=== PATIENT | male | born 1980 | race Caucasian/White ===

== ENCOUNTER 2017-07-09 09:40 | Emergency (ER) | payer SELFPAY ==
[~2017-07-09 09:40] MED LIST: CLIN1CAP5 PO
[2017-07-09 09:42] VITALS: BP 174/100; PULSE 82; RESP 15; TEMP 98.1; O2SAT 98
[2017-07-09] MEDS ORDERED: SODIUM CHLORIDE 0.9% FLUSH 10 ML FLUSH IVF PRN (11:15)
[2017-07-09] MEDS ORDERED: SODIUM CHLOR 0.9% 1000 ML INJ 1,000 ML IV ONE (11:15)
[2017-07-09] MEDS ORDERED: TETANUS/DIPHTHERIA TOXOID ADULT 0.5 ML VIAL IM ONE (11:15)
[2017-07-09 11:48] LABS: BASOPHIL % 0.5 % (0.0-2.0); EOSINOPHIL # 0.2 TH/MM3 (0-0.4); EOSINOPHIL % 2.6 % (0.0-4.0); HEMATOCRIT 41.7 % (39.0-51.0); HEMO FLAGS DIFF FINAL; LYMPH % 24.2 % (9.0-44.0); LYMPHOCYTE # 2.2 TH/MM3 (1.0-4.8); MEAN CELL VOLUME 85.5 FL (80.0-100.0); MEAN CORPUSCULAR HEMOGLOBIN 29.8 PG (27.0-34.0); MEAN CORPUSCULAR HGB CONC 34.9 % (32.0-36.0); MONO % 6.2 % (0.0-8.0); NEUT % 66.5 % (16.0-70.0); PLATELET COUNT 183 TH/MM3 (150-450); RED BLOOD COUNT 4.88 MIL/MM3 (4.50-5.90); RED CELL DISTRIBUTION WIDTH 13.7 % (11.6-17.2); WHITE BLOOD COUNT 9.1 TH/MM3 (4.0-11.0)
[2017-07-09 11:59] LABS: BICARBONATE 27.6 MEQ/L (21.0-32.0); POTASSIUM 3.8 MEQ/L (3.5-5.1)
[2017-07-09 12:19] LABS: CKMB 5.3 NG/ML (0.5-3.6)
--- NOTE | 2017-07-09 12:28 | PD ---
HPI Chief Complaint: Skin Problem Time Seen by Provider: 10:59 Travel History International Travel<30 days: No Contact w/Intl Traveler<30days: No Traveled to known affect area: No History of Present Illness HPI Patient is a 36-year-old male who presents to emergency room with multiple complaints. 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 Reports that the rash is not pruritic in nature, reports that he has not been scratching, reports that he wasn't sure when the rash came from. Patient denies any fevers or chills, denies any calf pain, no recent travels, no shortness of breath. No history of PE or DVT. Patient also complains of bug bite to his left hand digit #1 - reports that he noticed a bite 3 days ago and he did excise some pus from it. Reports that he has some localized swelling around his left hand, no drainage or redness up his arm. No other c/o. PFSH Past Medical History Medical History: Denies Significant Hx Cerebrovascular Accident: No Diabetes: No Diminished Hearing: No Myocardial Infarction: No Social History Alcohol Use: No Tobacco Use: No Substance Use: No Allergies-Medications (Allergen,Severity, Reaction): Coded Allergies: Penicillin (Verified Allergy, Severe, Respiratory Failure, 07/09/17) Reported Meds & Prescriptions Reported Meds & Active Scripts Active No Active Prescriptions or Reported Medications Review of Systems General / Constitutional: No: Fever, Chills Eyes: No: Visual changes HENT: No: Headaches Cardiovascular: No: Chest Pain or Discomfort Respiratory: No: Shortness of Breath Gastrointestinal: No: Abdominal Pain Genitourinary: No: Dysuria Musculoskeletal: No: Pain Skin: Positive Rash Neurologic: No: Weakness Psychiatric: No: Depression Endocrine: No: Polydipsia Hematologic/Lymphatic: No: Easy Bruising Physical Exam Narrative GENERAL: NAD SKIN: Focused skin assessment warm/dry. heat rash to b/l lower extremities, rashes not circumferential, there is no petechia or purpura, there is no redness or cellulitis, rash is not raised or excoriated HEAD: Atraumatic. Normocephalic. EYES: Pupils equal and round. No scleral icterus. No injection or drainage. ENT: No nasal bleeding or discharge. Mucous membranes pink and moist. NECK: Trachea midline. No JVD. CARDIOVASCULAR: Regular rate and rhythm. No murmur appreciated. RESPIRATORY: No accessory muscle use. Clear to auscultation. Breath sounds equal bilaterally. GASTROINTESTINAL: Abdomen soft, non-tender, nondistended. Hepatic and splenic margins not palpable. MUSCULOSKELETAL: No obvious deformities. No clubbing. No cyanosis. No edema. Left hand: patient with healing bug bite to left hand digit #3 - no drainage, no erythema, mild redness to thenar eminence, normal rom to all digits, pulses intact, neurovascularly intact NEUROLOGICAL: Awake and alert. No obvious cranial nerve deficits. Motor grossly within normal limits. Normal speech. PSYCHIATRIC: Appropriate mood and affect; insight and judgment normal. Data Data Last Documented VS Vital Signs Date Time Temp Pulse Resp B/P Pulse Ox O2 Delivery O2 Flow Rate FiO2 07/09/17 09:42 98.1 82 15 174/100 98 Orders Basic Metabolic Panel (Bmp) (07/09/17 11:07) Complete Blood Count With Diff (07/09/17 11:07) Iv Access Insert/Monitor (07/09/17 11:07) Sodium Chloride 0.9% Flush (Ns Flush) (07/09/17 11:15) Creatine Kinase (Cpk) (07/09/17 11:07) Sodium Chlor 0.9% 1000 Ml Inj (Ns 1000 M (07/09/17 11:15) Tetanus/Diphtheria Tox Adult (Tetanus/Di (07/09/17 11:15) CKMB (07/09/17 11:15) CKMB% (07/09/17 11:15) Labs Laboratory Tests Test 07/09/17 11:15 White Blood Count 9.1 TH/MM3 Red Blood Count 4.88 MIL/MM3 Hemoglobin 14.6 GM/DL Hematocrit 41.7 % Mean Corpuscular Volume 85.5 FL Mean Corpuscular Hemoglobin 29.8 PG Mean Corpuscular Hemoglobin 34.9 % Concent Red Cell Distribution Width 13.7 % Platelet Count 183 TH/MM3 Mean Platelet Volume 8.8 FL Neutrophils (%) (Auto) 66.5 % Lymphocytes (%) (Auto) 24.2 % Monocytes (%) (Auto) 6.2 % Eosinophils (%) (Auto) 2.6 % Basophils (%) (Auto) 0.5 % Neutrophils # (Auto) 6.0 TH/MM3 Lymphocytes # (Auto) 2.2 TH/MM3 Monocytes # (Auto) 0.6 TH/MM3 Eosinophils # (Auto) 0.2 TH/MM3 Basophils # (Auto) 0.0 TH/MM3 CBC Comment DIFF FINAL Differential Comment Sodium Level 141 MEQ/L Potassium Level 3.8 MEQ/L Chloride Level 106 MEQ/L Carbon Dioxide Level 27.6 MEQ/L Anion Gap 7 MEQ/L Blood Urea Nitrogen 13 MG/DL Creatinine 1.03 MG/DL Estimat Glomerular Filtration 81 ML/MIN Rate Random Glucose 91 MG/DL Calcium Level 8.7 MG/DL Total Creatine Kinase 796 U/L Creatine Kinase MB 5.3 NG/ML Creatine Kinase MB % 0.7 % MDM Medical Decision Making Medical Screen Exam Complete: Yes Emergency Medical Condition: Yes Interpretation(s) Vital Signs Date Time Temp Pulse Resp B/P Pulse Ox O2 Delivery O2 Flow Rate FiO2 07/09/17 09:42 98.1 82 15 174/100 98 Laboratory Tests Test 07/09/17 11:15 White Blood Count 9.1 TH/MM3 (4.0-11.0) Red Blood Count 4.88 MIL/MM3 (4.50-5.90) Hemoglobin 14.6 GM/DL (13.0-17.0) Hematocrit 41.7 % (39.0-51.0) Mean Corpuscular Volume 85.5 FL (80.0-100.0) Mean Corpuscular Hemoglobin 29.8 PG (27.0-34.0) Mean Corpuscular Hemoglobin 34.9 % Concent (32.0-36.0) Red Cell Distribution Width 13.7 % (11.6-17.2) Platelet Count 183 TH/MM3 (150-450) Mean Platelet Volume 8.8 FL (7.0-11.0) Neutrophils (%) (Auto) 66.5 % (16.0-70.0) Lymphocytes (%) (Auto) 24.2 % (9.0-44.0) Monocytes (%) (Auto) 6.2 % (0.0-8.0) Eosinophils (%) (Auto) 2.6 % (0.0-4.0) Basophils (%) (Auto) 0.5 % (0.0-2.0) Neutrophils # (Auto) 6.0 TH/MM3 (1.8-7.7) Lymphocytes # (Auto) 2.2 TH/MM3 (1.0-4.8) Monocytes # (Auto) 0.6 TH/MM3 (0-0.9) Eosinophils # (Auto) 0.2 TH/MM3 (0-0.4) Basophils # (Auto) 0.0 TH/MM3 (0-0.2) CBC Comment DIFF FINAL Differential Comment Sodium Level 141 MEQ/L (136-145) Potassium Level 3.8 MEQ/L (3.5-5.1) Chloride Level 106 MEQ/L (98-107) Carbon Dioxide Level 27.6 MEQ/L (21.0-32.0) Anion Gap 7 MEQ/L (5-15) Blood Urea Nitrogen 13 MG/DL (7-18) Creatinine 1.03 MG/DL (0.60-1.30) Estimat Glomerular Filtration 81 ML/MIN (>89) Rate Random Glucose 91 MG/DL (74-106) Calcium Level 8.7 MG/DL (8.5-10.1) Total Creatine Kinase 796 U/L (39-308) Creatine Kinase MB 5.3 NG/ML (0.5-3.6) Creatine Kinase MB % 0.7 % (0.0-4.0) Differential Diagnosis Differential includes heat rash, dehydration, rhabdomyolysis, bug bite with no signs of infection Narrative Course 36-year-old male who presents to emergency room with multiple complaints. Patient appears to have a heat rash to his bilateral lower extremities, he rash is right above his boots where the top of his boots meet his skin. Reports that it has been very hot outside and just wanted his rash evaluated. Rash does appear to be heat rash related, there appears to be no signs of infection. Patient also complaining of a bug bite to his right hand. I reviewed with patient signs of progessing infection and when to return to ER - tetanus was updated today. will start patient on clinda for hand infection - signs and symptoms of when to return to ER was reviewed with patient in detail Patient also reports feeling lightheaded and dizzy today, patient was given IV fluid and feels better at this time. CBC: WNL BMP: total ck 796 patient with mild rhabdo, discussed need to increase his fluid intake. Patient will follow up with a primary care doctor and will return to emergency room as needed. Diagnosis Primary Impression: Dehydration Additional Impressions: Bug bite Qualified Code: W57.XXXA - Bug bite, initial encounter Rhabdomyolysis Qualified Code: M62.82 - Non-traumatic rhabdomyolysis Cellulitis of hand, left Patient Instructions: General Instructions Additional Instructions: Please return to the emergency room as needed Please drink plenty of fluids Please follow up with your primary care doctor Return to ER if symptoms worsen or persist Scripts Clindamycin 300 Mg [id number] Mg PO Q6H 7 Days Ref 0 Prov:Nancy Levine DO 07/09/17 Disposition: 01 DISCHARGE HOME Condition: Stable Nancy Levine DO Jul 09, 2017 12:28
[2017-07-09] MEDS ORDERED: CLIN1CAP6 PO (12:41)
[2017-07-09 12:55] VITALS: BP 158/78
== END 2017-07-09 13:15 | disposition home or self-care (01) ==
LOC: NEPD 09:40
DX: E86.0 Dehydration (principal); M62.82 Rhabdomyolysis; L03.114 Cellulitis of left upper limb; S60.561A Insect bite (nonvenomous) of right hand, initial encounter; R42 Dizziness and giddiness; W57.XXXA Bitten or stung by nonvenomous insect and other nonvenomous arthropods, initial encounter; Z88.0 Allergy status to penicillin; Z23 Encounter for immunization
CPT/HCPCS: 80048; 82550; 82552; 85025; 90471; 90714; 96360; 99284; J7030

== ENCOUNTER 2018-02-24 08:21 | Emergency (ER) | payer MEDICAID ==
[~2018-02-24] VITALS: Ht 182.9 cm; Wt 142.0 kg
[~2018-02-24 08:21] MED LIST changes: -CLIN1CAP5 PO; +CLIN300C5 PO
[2018-02-24 08:32] VITALS: BP 176/106; PULSE 108; RESP 20; TEMP 99.1; O2SAT 94
--- NOTE | 2018-02-24 09:31 | RADRPT ---
EXAM DATE/TIME: 02/24/2018 09:23 [facility] COMPARISON: No previous studies available for comparison. INDICATIONS : Patient states cough. MEDICAL HISTORY : None. SURGICAL HISTORY : None. ENCOUNTER: Initial ACUITY: 3 days PAIN SCORE: 0/10 LOCATION: Bilateral chest FINDINGS: PA and lateral views of the chest were obtained and demonstrate mild patchy infiltrate in the left lo wer lobe. The right lung is clear. There is no effusion. The heart and mediastinal structures are wit hin normal limits. The soft tissues and bony thorax are unremarkable in appearance. CONCLUSION: Patchy infiltrate in the left lower lobe most characteristic of pneumonia. Jim Hamilton MD on February 24, 2018 at 9:27 Board Certified Radiologist. This report was verified electronically.
[2018-02-24 10:05] VITALS: O2SAT 98
--- NOTE | 2018-02-24 10:11 | PD ---
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 Patient states pain became severe made him sweat and feel very run down for a few moments. He also states he has been having a dry cough and some intermittent shortness of breath recently as well. No fevers no abdominal pain no nausea no vomiting no diarrhea. He states his symptoms were fairly severe lasted only for a few seconds now nearly resolved associated signs and symptoms and contacts as above per [facility] Past Medical History Cerebrovascular Accident: No Diabetes: No Diminished Hearing: No Myocardial Infarction: No Social History Alcohol Use: Yes ([facility]) Tobacco Use: No Substance Use: No Allergies-Medications (Allergen,Severity, Reaction): Coded Allergies: penicillin G (Unverified Allergy, Severe, Respiratory Failure, 07/16/17) Reported Meds & Prescriptions Reported Meds & Active Scripts Active Mucinex DM (Dextromethorphan-Guaifenesin) 30-600 Mg Tab 1 Tab PO BID PRN Tessalon Perles (Benzonatate) 100 Mg Cap 100 Mg PO TID PRN Azithromycin 250 Mg Tab 250 Mg PO DIRECTED Take 2 tabs (500 mg) on day 1 then 1 tab daily x 4 days. Proair Hfa 8.5 GM Inh (Albuterol Sulfate) 90 Mcg/Act Aer 2 Puff INH Q6H PRN 108 mcg/actuation Clindamycin (Clindamycin HCl) 300 Mg Cap 300 Mg PO Q6H 7 Days Review of Systems Except as stated in HPI: all other systems reviewed are Neg Physical Exam Narrative GENERAL: Well-developed, overweight but in no obvious distress SKIN: Focused skin assessment warm/dry. HEAD: Atraumatic. Normocephalic. EYES: Pupils equal and round. No scleral icterus. No injection or drainage. ENT: No nasal bleeding or discharge. Mucous membranes pink and moist. TMs clear bilaterally, oropharynx clear moist, exhibiting a dry cough peer NECK: Trachea midline. No JVD. CARDIOVASCULAR: Regular rate and rhythm. No murmur appreciated. 2+ bilateral equal pulses in all 4 extremity's, no murmurs gallops or rubs RESPIRATORY: No accessory muscle use. Clear to auscultation. Breath sounds equal bilaterally. GASTROINTESTINAL: Abdomen soft, non-tender, nondistended. Hepatic and splenic margins not palpable. MUSCULOSKELETAL: No obvious deformities. No clubbing. No cyanosis. No edema. NEUROLOGICAL: Awake and alert. No obvious cranial nerve deficits. Motor grossly within normal limits. Normal speech. PSYCHIATRIC: Appropriate mood and affect; insight and judgment normal. Data Data Last Documented VS Vital Signs Date Time Temp Pulse Resp B/P (MAP) Pulse Ox O2 Delivery O2 Flow Rate FiO2 02/24/18 13:08 86 18 145/72 (96) 98 02/24/18 10:05 Room Air 02/24/18 08:32 99.1 Orders Orders Electrocardiogram (02/24/18 08:36) Complete Blood Count With Diff (02/24/18 08:36) Basic Metabolic Panel (Bmp) (02/24/18 08:36) Ckmb (Isoenzyme) Profile (02/24/18 08:36) Troponin I (02/24/18 08:36) Iv Access Insert/Monitor (02/24/18 08:36) Ecg Monitoring (02/24/18 08:36) Oxygen Administration (02/24/18 08:36) Oximetry (02/24/18 08:36) Chest, Pa & Lat (02/24/18 08:36) Act Partial Throm Time (Ptt) (02/24/18 10:11) Prothrombin Time / Inr (Pt) (02/24/18 10:11) D-Dimer (02/24/18 10:11) CKMB (02/24/18 08:56) CKMB% (02/24/18 08:56) Ed Discharge Order (02/24/18 12:52) Labs Laboratory Tests Test 02/24/18 08:56 02/24/18 08:59 White Blood Count 6.4 TH/MM3 Red Blood Count 5.05 MIL/MM3 Hemoglobin 14.9 GM/DL Hematocrit 42.8 % Mean Corpuscular Volume 84.7 FL Mean Corpuscular Hemoglobin 29.5 PG Mean Corpuscular Hemoglobin Concent 34.8 % Red Cell Distribution Width 13.4 % Platelet Count 168 TH/MM3 Mean Platelet Volume 9.5 FL Neutrophils (%) (Auto) 71.4 % Lymphocytes (%) (Auto) 15.5 % Monocytes (%) (Auto) 9.6 % Eosinophils (%) (Auto) 3.0 % Basophils (%) (Auto) 0.5 % Neutrophils # (Auto) 4.5 TH/MM3 Lymphocytes # (Auto) 1.0 TH/MM3 Monocytes # (Auto) 0.6 TH/MM3 Eosinophils # (Auto) 0.2 TH/MM3 Basophils # (Auto) 0.0 TH/MM3 CBC Comment AUTO DIFF Differential Total Cells Counted 100 Neutrophils % (Manual) 65 % Band Neutrophils % 6 % Lymphocytes % 14 % Monocytes % 13 % Eosinophils % 1 % Neutrophils # (Manual) 4.6 TH/MM3 Myelocytes 1 % Differential Comment FINAL DIFF MANUAL Platelet Estimate NORMAL Platelet Morphology Comment NORMAL Blood Urea Nitrogen 10 MG/DL Creatinine 1.15 MG/DL Random Glucose 117 MG/DL Calcium Level 8.8 MG/DL Sodium Level 140 MEQ/L Potassium Level 3.8 MEQ/L Chloride Level 106 MEQ/L Carbon Dioxide Level 26.0 MEQ/L Anion Gap 8 MEQ/L Estimat Glomerular Filtration Rate 71 ML/MIN Total Creatine Kinase 208 U/L Creatine Kinase MB 1.5 NG/ML Troponin I LESS THAN 0.02 NG/ML Prothrombin Time 10.2 SEC Prothromb Time International Ratio 1.0 RATIO Activated Partial Thromboplast Time 27.1 SEC D-Dimer Quantitative (PE/DVT) 0.43 MG/L FEU [facility] Medical Decision Making Medical Screen Exam Complete: Yes Emergency Medical Condition: Yes Differential Diagnosis Pneumonia, ACS unlikely, palpitations, PE. Narrative Course Patient room to the emergency department, overall appears fairly well, chest x- ray does show some evidence of pneumonia which would be in line with his symptoms. D-dimer is negative the patient is low risk for PE. EKG normal. Patient otherwise appears well. Discussed empiric therapy and follow-up with a primary care physician or the [facility]. At this time there is no indication further workup. He is stable for discharge. Diagnosis Primary Impression: Pneumonia Departure Forms: Tests/Procedures, Work Release Enter return to work date: Feb 27, 2018 Med/Other Pt SpecificInfo: Prescription(s) given Scripts Dextromethorphan-Guaifenesin (Mucinex DM) 30-600 Mg Tab 1 TAB PO BID Y for CHEST CONGESTION AND/OR COUGH, #21 TAB 0 Refills Prov: Abel Ma MD 02/24/18 Benzonatate (Tessalon Perles) 100 Mg Cap 100 MG PO TID Y for COUGH, #21 CAP 0 Refills Prov: Abel Ma MD 02/24/18 Azithromycin (Azithromycin) 250 Mg Tab 250 MG PO DIRECTED for Infection, #6 TAB 0 Refills Take 2 tabs (500 mg) on day 1 then 1 tab daily x 4 days. Prov: Abel Ma MD 02/24/18 Albuterol 8.5 GM Inh (Proair Hfa 8.5 GM Inh) 90 Mcg/Act Aer 2 PUFF INH Q6H Y for SHORTNESS OF BREATH, #1 INHALER 1 Refill 108 mcg/actuation Prov: Abel Ma MD 02/24/18 Disposition: 01 DISCHARGE HOME Condition: Stable Abel Ma MD Feb 24, 2018 10:11
[2018-02-24 10:16] LABS: AUTOMATED NEUTROPHIL # 4.5 TH/MM3 (1.8-7.7); BASOPHIL % 0.5 % (0.0-2.0); EOSINOPHIL # 0.2 TH/MM3 (0-0.4); HEMATOCRIT 42.8 % (39.0-51.0); HEMOGLOBIN 14.9 GM/DL (13.0-17.0); LYMPH % 15.5 % (9.0-44.0); MEAN CELL VOLUME 84.7 FL (80.0-100.0); MEAN CORPUSCULAR HEMOGLOBIN 29.5 PG (27.0-34.0); MEAN CORPUSCULAR HGB CONC 34.8 % (32.0-36.0); MEAN PLATELET VOLUME 9.5 FL (7.0-11.0); MONO % 9.6 % (0.0-8.0); MONOCYTE # 0.6 TH/MM3 (0-0.9); NEUT % 71.4 % (16.0-70.0); PLATELET COUNT 168 TH/MM3 (150-450); RED BLOOD COUNT 5.05 MIL/MM3 (4.50-5.90); RED CELL DISTRIBUTION WIDTH 13.4 % (11.6-17.2); WHITE BLOOD COUNT 6.4 TH/MM3 (4.0-11.0)
[2018-02-24 10:37] LABS: BLOOD UREA NITROGEN 10 MG/DL (7-18); CALCIUM 8.8 MG/DL (8.5-10.1); CHLORIDE 106 MEQ/L (98-107); CREATININE 1.15 MG/DL (0.60-1.30); GLOMERULAR FILTRATION RATE 71 ML/MIN (>89); GLUCOSE,RANDOM 117 MG/DL (74-106); SODIUM (NA) 140 MEQ/L (136-145)
[2018-02-24 10:52] LABS: TROPONIN I LESS THAN 0.02 NG/ML (0.02-0.05)
[2018-02-24 11:04] LABS: BANDS 6 % (0-6); LYMPHOCYTES 14 % (9-44); MONOCYTES 13 % (0-8); MYELOCYTES 1 % (0-0); NEUTROPHIL # MANUAL DIFF 4.6 TH/MM3 (1.8-7.7); POLYS (SEG NEUTROPHILS) 65 % (16-70)
[2018-02-24 12:10] LABS: PROTHROMBIN TIME - PATIENT 10.2 SEC (9.8-11.6)
[2018-02-24 12:12] LABS: D-DIMER 0.43 MG/L FEU (0.00-0.50)
[2018-02-24] MEDS ORDERED: HUMIBIDDM PO (12:52)
[2018-02-24] MEDS ORDERED: ALBUAER3 INH (12:52)
[2018-02-24] MEDS ORDERED: BENZ100 PO (12:52)
[2018-02-24] MEDS ORDERED: AZIT250T3 PO (12:52)
[2018-02-24 13:08] VITALS: BP 145/72
--- NOTE | 2018-02-25 00:06 | EKG ---
Date Performed: 02/24/2018 Time Performed: 08:49:08 PTAGE: 37 years EKG: Sinus rhythm NORMAL ECG INTERPRETATION BASED ON A DEFAULT AGE OF 39 YEARS NO PREVIOUS TRACING DOCTOR: Malissa Alonso Interpretating Date/Time 02/25/2018 00:00:53
== END 2018-02-24 13:09 | disposition home or self-care (01) ==
LOC: NED 08:21 → NEPD 13:09
DX: J18.9 Pneumonia, unspecified organism (principal)
CPT/HCPCS: 71046; 80048; 82550; 82552; 84484; 85007; 85027; 85379; 85610; 85730; 93005; 99285